=== PATIENT | female | born 1990 | race Caucasian/White ===

== ENCOUNTER 2024-07-30 11:19 | Outpatient (CLI) | payer OTHER, SELFPAY ==
--- NOTE | 2024-07-30 11:00 | MR_ITS ---
WS: [id number] MRI LUMBAR SPINE NONCONTRAST TECHNIQUE: Sagittal T1, T2 and STIR imaging. Axial T1 and T2 imaging. CLINICAL INFORMATION: M54.30 - Sciatica, unspecified side COMPARISON: None. FINDINGS: Mild lumbar curve. No acute compression. Disc space narrowing worse at L5-S1 with endplate degenerative changes. L1-L2: Normal. L2-L3: Normal. L3-L4: Minimal annular bulging. Mild facet arthropathy. Spinal canal and foramen are patent. L4-L5: Mild annular bulging. Impingement on the LEFT greater than RIGHT subarticular recess and traversing L5 nerve roots. Mild facet arthropathy. Foramen are patent. L5-S1: Disc bulging with a shallow central protrusion and slight contact of the traversing S1 nerve roots. Mild LEFT foraminal narrowing. Mild facet arthropathy. Visualized pelvic bony structures: Normal. Paravertebral soft tissues: Normal. Partially visualized hepatomegaly. MR/MR lumbar spine wo con* [id number] IMPRESSION: 1. Mild annular bulging L4-5 with slight impingement on the LEFT greater than RIGHT subarticular recess and traversing L4 nerve roots. 2. Small central protrusion L5-S1. Slight encroachment of traversing S1 nerve roots. Mild LEFT greater than RIGHT foraminal narrowing at this level. 3. Mild facet arthropathy L3-L5. 4. Hepatomegaly
--- NOTE | 2024-07-30 12:39 | XRR_ITS ---
PROCEDURE INFORMATION: Exam: XR Right Knee Exam date and time: 07/30/2024 12:56 PM Age: 33 years old Clinical indication: Pain; Knee; Right; Additional info: M17.11 - unilateral primary osteoarthritis, right knee TECHNIQUE: Imaging protocol: Radiologic exam of the right knee. Views: 3 views. COMPARISON: No relevant prior studies available. FINDINGS: Bones/joints: Right knee demonstrates mild tricompartmental DJD, and suggestion of 1 or 2 subcentimeter calcific loose bodies at posterior margin of the intercondylar notch. No acute fracture or dislocation . No effusion Soft tissues: Normal. XR/XR knee RT 3V* [id number] IMPRESSION: No acute findings. See above
== END 2024-07-30 11:20 | disposition home or self-care (01) ==
PROVIDERS: PCP Registered Nurse; Visit Provider Registered Nurse
DX: M17.11 Unilateral primary osteoarthritis, right knee (principal); M48.07 Spinal stenosis, lumbosacral region; M51.27 Other intervertebral disc displacement, lumbosacral region; M47.816 Spondylosis without myelopathy or radiculopathy, lumbar region; M51.369 Other intervertebral disc degeneration, lumbar region without mention of lumbar back pain or lower extremity pain
CPT/HCPCS: 72148; 73562